=== PATIENT | female | born 1965 | race Caucasian/White ===

== ENCOUNTER 2019-10-21 11:20 | Emergency (ER) | payer MEDICAID ==
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
--- NOTE | 2019-10-21 13:50 | CRLCR ---
INDICATIONS: Injury, pain. TECHNIQUE: Two views. COMPARISON: None. FINDINGS: bilateral hip arthroplasty components, and appear anatomically positioned, as visualized on these AP views. Metallic components across the left sacroiliac joint appear intact. No visible acute fracture. Degenerative disc disease at visualized portions of the lower lumbar spine. No intrinsic bone lesion is demonstrated. IMPRESSION: Postoperative changes. No acute osseous abnormalities seen on these AP views of the pelvis. Dictated by Dariel Mary MD @ Oct 21 2019 1:44PM Signed by Dr. Dariel Mary @ Oct 21 2019 1:48PM
== END 2019-10-21 13:43 | disposition home or self-care (01) ==
LOC: JP.ED 11:20
DX: S39.012A Strain of muscle, fascia and tendon of lower back, initial encounter (principal); Z88.2 Allergy status to sulfonamides; Z79.899 Other long term (current) drug therapy; V86.69XA Passenger of other special all-terrain or other off-road motor vehicle injured in nontraffic accident, initial encounter
CPT/HCPCS: 72170; 99284